=== PATIENT | female | born 1970 | race Caucasian/White ===

== ENCOUNTER → 2019-04-07 | Outpatient (CLI) | payer OTHER ==
--- NOTE | 2019-04-07 09:13 | CT ---
EXAMINATION TYPE: CT neck chest without con DATE OF EXAM: 04/07/2019 COMPARISON: none HISTORY: Swollen lymph nodes CT DLP: 916.[address] of the chest was performed with lung and mediastinal window settings submitted. The la ck of contrast limits evaluation of the vascular, mediastinal and parenchymal structures including th e upper abdomen. LUNGS: Large right upper lobe mass medially which has a bilobed appearance. This may reflect large co nglomerate right paratracheal adenopathy with associated pulmonary mass. Components measure 5.0 x 6.2 cm with smaller rounded component measuring 2.5 x 2.6 cm. Additional satellite nodule right upper lo be measuring 1 cm. 4 mm nodule lateral segment right middle lobe. MEDIASTINUM/ROBBI: See above. 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 Lack of contrast limits evaluation of the superior vena cava however. Strict clini trudy correlation recommended. Subcarinal adenopathy measures 2.1 cm. UPPER ABDOMEN: No significant abnormality is seen. OTHER: No significant other abnormality. IMPRESSION: 1. 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 Lack of contrast however does limit evaluation. EXAMINATION TYPE: CT neck chest without con DATE OF EXAM: 04/07/2019 COMPARISON: none HISTORY: Swollen lymph nodes CT DLP: 916.[address] of the neck was performed from the skull base through the lung apices. The lack of cont rast limits evaluation. AIRWAY: The supraglottic, glottic, and subglottic portions of the airway appear patent and free of mass. SALIVARY GLANDS: The submandibular and parotid glands are free of mass or inflammatory process. THYROID GLAND: No nodules or masses seen. LYMPH NODES: No adenopathy seen greater than 1cm. OTHER: Vascular structures are patent although prominent. No significant degenerative change of the cervical spine. No abscess seen. IMPRESSION: No distinct abnormality of the neck. A Red level critical message alert has been initiated for Sukhwinder Molina MD via the [employer] Critical Results System on 04/07/2019 9:10 AM. This message alert has been sent to Sukhwinder Molina MD via the preferences provided by the clinician for the receipt of Radiology Critical Find ings. Message ID [id number].
== END | disposition home or self-care (01) ==
LOC: RADCTMAIN 07:35
PROVIDERS: ATTEND Family Medicine
DX: R06.02 Shortness of breath (principal); R22.1 Localized swelling, mass and lump, neck; Z88.5 Allergy status to narcotic agent
CPT/HCPCS: 70490; 71250

== ENCOUNTER → 2019-04-21 | Outpatient (CLI) | payer OTHER ==
--- NOTE | 2019-04-24 07:39 | PE ---
EXAMINATION TYPE: PET CT fusion skull to thigh DATE OF EXAM: 04/21/2019 COMPARISON: CT neck and chest dated 04/07/2019 HISTORY: Findings concerning for bronchogenic carcinoma on the CT dated 04/07/2019 with marked mediast inal adenopathy and resultant superior vena cava syndrome. No suspicious adenopathy was seen within t he neck. The patient is noted to be on oral steroids elevating the blood glucose. Patient states the re was a recent biopsy performed. Outside notes state a plan of navigational bronchoscopy. TECHNIQUE: Following the intravenous administration of 11.75. mCi of F-18 FDG, whole body images are performed from the skull base to the midthigh. Images are reviewed on the computer in the coronal, axial, and sagittal planes. Reconstructed rotating images are created on independent workstation and reviewed on the computer. A localization and attenuation correction CT is performed in conjunction with the PET scan. SCAN: Initial treatment strategy. No prior surgery, chemotherapy, nor radiation. FINDINGS: Mediastinal background: 1.86 Abdominal background: 3.28 SKULL BASE AND NECK: No suspicious hypermetabolic uptake CHEST, MEDIASTINUM, AND HILAR REGION: The right suprahilar mass previously measuring 5.6 x 6.2 cm or smaller rounded component measuring 2.5 x 2.6 cm on the exam of 04/07/2019 is markedly hypermetabolic with a maximum SUV of 9.3 with the more anterior smaller mass having a maximum SUV of 6.8. There is e vidence for mediastinal invasion with mass effect on the right hilar vasculature. There is abnormal m ediastinal adenopathy that is intimately associated with the mass and overall inseparable within the pretracheal, right paratracheal, precarinal, and right hilar regions. A subcarinal lymph node is 1.3 cm in short axis and has a maximum SUV of. There is a small satellite pulmonary nodule in the right a pex measuring 1.1 x 0.8 cm on series 3 image 69 with a maximum SUV of. ABDOMEN AND PELVIS: Liver uptake is patchy overall with no discrete focal lesion on noncontrast CT. H owever there is very slight more focal uptake in segment 4A that is similar to abdominal background w ith a maximum SUV of 3.38. Surveillance or MRI liver could be considered. There is a left labial lesion with hypermetabolic activity and SUV of 4.09. More anterior uptake towa rds the skin surface has a maximum SUV of 9.86 within the left labia. This could represent an infecte d Bartholin's gland cyst although direct visualization is recommended. OSSEOUS STRUCTURES: No suspicious hypermetabolic uptake. OTHER CT: Paranasal sinuses and mastoid air cells are well aerated. Atherosclerosis of the right carotid artery is incidentally seen. Mild multilevel degenerative changes of the spine and hips. There is very smal l hiatal hernia suspected. Small splenule is seen. Too small to accurately characterize hepatic lesio n is hypoattenuated on series 3 image 5. There is focal hypoattenuation in the left hepatic lobe jazmín uring approximately 1.6 cm on series 2 image 124 and near the fissure for the falciform ligament jazmín uring approximately 2.7 cm in segment 4A. Cholelithiasis is seen. Further workup for hepatic metastas is is recommended with MR liver mass protocol. Very small fat filled umbilical hernia. 9 IMPRESSION: 1. Findings are compatible with primary pulmonary neoplasm with mediastinal invasion and mediastinal adenopathy that is inseparable from the right hilar mass involving the superior right paratracheal, p retracheal, precarinal, and right hilar spaces. This was noted to contribute to SVC syndrome on the p rior exam of 04/07/2019. 2. No contralateral adenopathy, no pleural effusions, no supraclavicular adenopathy, and no convincin g evidence of infradiaphragmatic metastasis nor osseous metastasis, however the liver is diffusely he terogenous with patchy area in segment 4A that is just above background. No convincing correlate on n oncontrast CT. Surveillance or MRI liver could be considered. 3. Marked hypermetabolic uptake near the skin surface within the left labia majora and additionally w ithin a probable inflamed Bartholin's gland cyst on the left. Direct visualization is recommended.
== END | disposition home or self-care (01) ==
LOC: RADPETMAIN 13:16
PROVIDERS: ATTEND Internal Medicine Pulmonary Disease
DX: R59.0 Localized enlarged lymph nodes (principal); R91.8 Other nonspecific abnormal finding of lung field
CPT/HCPCS: 78815; A9552

== ENCOUNTER → 2019-05-02 | Outpatient (CLI) | payer OTHER ==
--- NOTE | 2019-05-02 10:07 | MR ---
EXAMINATION TYPE: MR brain wo/w con DATE OF EXAM: 05/02/2019 COMPARISON: None HISTORY: Headaches / Lung cancer TECHNIQUE: Multiplanar, multisequence images of the brain and brainstem is performed without and with IV contras t, utilizing 7 mL intravenous Gadavist . FINDINGS: Diffusion weighted images demonstrate no evidence of a recent infarct or other diffusion ab normality. There is no extra-axial fluid collection. Scattered and confluent hyperintensity present on inversion recovery T2-weighted sequences within the periventricular, subcortical, pericallosal whi te matter, approximately 20-30 lesions are present. Largest is in the right frontal white matter jazmín uring approximately 7 to 8 mm on axial image 22. The ventricular system and cisternal spaces are norm al in size and appearance, mild asymmetry in the appearance of the lateral ventricles is likely cindy l variant. The brain volume is age appropriate. There is some artifact on the exam. Midline structures demonstrate normal morphology. The craniocervical junction appears within normal limits. Post contrast images demonstrate no abnormal enhancement. The dural venous sinuses appear pa tent. The visualized sinuses are clear and the globes are intact. IMPRESSION: Nonspecific white matter demyelination, correlate for possible multiple sclerosis, hypert ension, migraine headaches, Lyme disease, vasculitis or chronic small vessel ischemic change. No abno rmal enhancement to suggest metastasis.
== END | disposition home or self-care (01) ==
LOC: RADMRIMAIN 08:41
PROVIDERS: ATTEND Internal Medicine Hematology & Oncology
DX: C34.91 Malignant neoplasm of unspecified part of right bronchus or lung (principal); R90.89 Other abnormal findings on diagnostic imaging of central nervous system
CPT/HCPCS: 70553; A9585

== ENCOUNTER → 2019-05-04 | Outpatient (CLI) | payer OTHER ==
--- NOTE | 2019-05-07 15:31 | MR ---
EXAMINATION TYPE: MR liver wo/w con DATE OF EXAM: 05/04/2019 COMPARISON: Correlation PET/CT 04/21/2019 HISTORY: 48-year-old female Lung CA Technique: Multiplanar, multisequence images of the abdomen were obtained before and after administra tion of 7 mL intravenous Gadavist gadolinium contrast. FINDINGS: Heart normal size without pericardial effusion. No pleural effusion. Liver mildly enlarged at 18.9 cm. There is slight loss of signal on out of phase T1-weighted sequence suggesting minimal fatty infiltration. No T2-weighted signal abnormality of the liver or discrete enhancing lesion is identified with partic ular attention to the questioned area in segment 4 of the left liver lobe. Numerous small gallstones fill the nondistended gallbladder lumen. No biliary ductal dilatation. Port al venous system is patent. Adrenal glands, kidneys, spleen with small posterior splenule, and pancreas appear within normal limi ts. No upper abdominal lymphadenopathy, ascites fluid, or gross bowel abnormality. IMPRESSION: 1. Mild hepatomegaly. There may be minimal underlying fatty infiltration. 2. No suspicious liver lesion. Given appearance on the present MRI, the questioned PET/CT finding lik kristin corresponds to normal variation heterogeneous liver uptake. 3. Cholelithiasis.
== END | disposition home or self-care (01) ==
LOC: RADMRIMAIN 14:00
PROVIDERS: ATTEND Internal Medicine Hematology & Oncology
DX: K80.20 Calculus of gallbladder without cholecystitis without obstruction (principal); C34.91 Malignant neoplasm of unspecified part of right bronchus or lung; R16.0 Hepatomegaly, not elsewhere classified
CPT/HCPCS: 74183; A9585

== ENCOUNTER → 2019-06-22 | Outpatient (CLI) | payer OTHER ==
--- NOTE | 2019-06-22 12:32 | US ---
EXAMINATION TYPE: US venous doppler duplex LE LT DATE OF EXAM: 06/22/2019 12:12 PM COMPARISON: NONE CLINICAL HISTORY: M79.662 PAIN LLL,R22.42 SWELLING LLL. Left leg pain and swelling x couple days SIDE PERFORMED: Left TECHNIQUE: The lower extremity deep venous system is examined utilizing real time linear array sonog kriss with graded compression, doppler sonography and color-flow sonography. VESSELS IMAGED: External Iliac Vein (EIV) Common Femoral Vein Deep Femoral Vein Greater Saphenous Vein * Femoral Vein Popliteal Vein Small Saphenous Vein * Proximal Calf Veins (* superficial vessels) Left Leg: Appears negative for DVT Grayscale, color doppler, spectral doppler imaging performed of the deep veins of the left lower extr emity. There is normal flow, compressibility, vascular waveforms. IMPRESSION: No ultrasound evidence for acute DVT in the left lower extremity.
== END | disposition home or self-care (01) ==
LOC: RADUSWWP 11:47
PROVIDERS: ATTEND Internal Medicine Hematology & Oncology
DX: M79.662 Pain in left lower leg (principal)

== ENCOUNTER → 2019-07-26 | Day surgery (SDC) | payer OTHER ==
[~2019-07-26] MED LIST: LIDOCAINE 1% INJ 10MG/ML (20 ML MDV) ONE; LIDOCAINE 1% INJ 10MG/ML (20 ML MDV) SQ ONE
--- NOTE | 2019-07-27 11:33 | IR ---
EXAMINATION TYPE: IR cvc insert >=5 years DATE OF EXAM: 07/27/2019 COMPARISON: NONE CLINICAL HISTORY: Needs long-term intravenous access for chemotherapy PROCEDURE: After informed consent, the skin overlying the left basilic vein was localized with ultrasound and no nikolai to be compressible and patent. An ultrasound image was obtained and submitted on the patient's c reyes. The overlying skin was prepped and draped and Lidocaine was used for local anesthesia. A skin birgit was made with a scalpel. Access was gained to the vein under ultrasound guidance with a 21 gau ge needle and a 0.018 inch wire was advanced. Access site was dilated with Peel-Away sheath and cath eter tailored to the appropriate length and advanced such that the distal tip is at the cavoatrial ju nction. Spot image was obtained verifying placement. Catheter was fixed to the skin and a sterile d ressing was placed following hemostasis. Catheter was aspirated and flushed with saline. Patient wa s discharged in stable condition without complication.Maximal barrier technique is utilized. Ultraso und image is documented on the chart. Ultrasound used with sterile technique. Fluoro time and fluoroscopic images submitted to document procedure: 65 intraoperative C-arm images, 0.3 minutes of fluoroscopy time IMPRESSION: STATUS POST ULTRASOUND AND FLUOROSCOPIC GUIDED PICC LINE PLACEMENT, READY FOR USE. THIS PROCEDURE WAS PERFORMED BY THE UNDERSIGNED.
== END ==
LOC: CATHCVL 11:21
PROVIDERS: ATTEND Radiology Diagnostic Radiology
DX: Z45.2 Encounter for adjustment and management of vascular access device (principal); I87.2 Venous insufficiency (chronic) (peripheral); C34.91 Malignant neoplasm of unspecified part of right bronchus or lung
CPT/HCPCS: 36573; C1751; C1769; J2001

== ENCOUNTER → 2019-08-04 | Outpatient (CLI) | payer OTHER ==
[~2019-08-04] MED LIST changes: -LIDOCAINE 1% INJ 10MG/ML (20 ML MDV) ONE; -LIDOCAINE 1% INJ 10MG/ML (20 ML MDV) SQ ONE; +SODIUM CHLORIDE 0.9% 500 ML 500 ML in EMPTY BAG 1 BAG IV PRN
[2019-08-04 14:58] VITALS: BP 107/63; PULSE 80; RESP 16; TEMP 98.2
== END | disposition home or self-care (01) ==
LOC: PROCWHC3 11:59
PROVIDERS: ATTEND Internal Medicine Hematology & Oncology
DX: D64.81 Anemia due to antineoplastic chemotherapy (principal)
CPT/HCPCS: 86900; 86901; 86850; 86920; 36430; P9016